=== PATIENT | male | born 1990 | race Two or more races ===

== ENCOUNTER 2019-07-08 01:10 | Emergency (ER) | payer MEDICAID ==
[~2019-07-08] VITALS: Ht 172.7 cm; Wt 90.7 kg
[2019-07-08 01:22] VITALS: BP 138/93
[2019-07-08 01:45] LABS: Basophils # (auto) 0 10 ^3/uL (0-0.2); Basophils % (auto) 0.7 % (0.0-2.0); Eosinophils # (auto) 0.1 10 ^3/uL (0-0.8); Hemoglobin 16.9 g/dL (13.5-17.5); Lymphocytes # (auto) 1.8 10 ^3/uL (0.4-5.4); Lymphocytes % (auto) 28.3 % (10.0-50.0); Mean Corpuscular Hemoglobin 31.7 pg (28.0-32.0); Mean Corpuscular Hgb Conc. 33.7 g/dL (32.0-36.0); Mean Corpuscular Volume 93.9 fL (80.0-100.0); Monocytes # (auto) 0.6 10 ^3/uL (0-1.3); Monocytes % (auto) 8.7 % (0.0-12.0); Neutrophils # (auto) 3.9 10 ^3/uL (1.6-8.6); Neutrophils % (auto) 61.3 % (37.0-80.0); Nucleated Red Blood Cells % 0.1 %; Platelet Count (auto) 245 10^3/uL (140-450); Red Blood Cells 5.32 10^6/uL (4.5-5.90); Red Cell Distribution Width 13.7 % (11.8-14.3); White Blood Cell 6.3 10^3/uL (4.4-10.8)
[2019-07-08 01:54] LABS: Urine Bacteria FEW /hpf (None Seen); Urine Blood Negative /uL (Negative); Urine Hyaline Cast FEW /lpf (0 - 2); Urine Mucus FEW (None Seen); Urine Specific Gravity 1.009 (1.001-1.035); Urine WBC 2 /hpf (0 - 3)
[2019-07-08 02:06] LABS: Albumin 4.3 g/dL (3.4-5.0); BUN/Creatinine Ratio 8.8; Calcium 8.4 mg/dL (8.5-10.1)
[2019-07-08 02:08] LABS: Bilirubin, Total 0.4 mg/dL (0.2-1.0); Total Protein 8.6 g/dL (6.4-8.2)
[2019-07-08 02:18] LABS: Amphetamine Screen, Urine NEGATIVE (NEGATIVE); Barbiturate Scree,Urine NEGATIVE (NEGATIVE); Benzodiazephine Screen, Urine NEGATIVE (NEGATIVE); Cannabinoid Screen, Urine NEGATIVE (NEGATIVE); Cocaine Screen, Urine NEGATIVE (NEGATIVE); Opiate Scree,Urine NEGATIVE (NEGATIVE); Phencyclidine Screen, Urine NEGATIVE (NEGATIVE)
[2019-07-08] MEDS ORDERED: cefTRIAXone SOD 1,000 MG VL IM ONE (02:30)
[2019-07-08] MEDS ORDERED: KETOROLAC TROMETH 60MG/2ML VIAL IM ONE (02:45)
== END 2019-07-08 02:50 | disposition home or self-care (01) ==
LOC: ER 01:14
DX: R51 Headache (principal); N39.0 Urinary tract infection, site not specified; F10.129 Alcohol abuse with intoxication, unspecified; R74.8 Abnormal levels of other serum enzymes; V89.2XXA Person injured in unspecified motor-vehicle accident, traffic, initial encounter; Y93.89 Activity, other specified; Y92.410 Unspecified street and highway as the place of occurrence of the external cause; Y99.8 Other external cause status
CPT/HCPCS: 36415; 70450; 72100; 72125; 80053; 80307; 81001; 85025; 96372; 99285; J0696; J1885

== ENCOUNTER 2020-11-26 10:46 | Inpatient (IN) | payer MEDICAID ==
[~2020-11-26] VITALS: Ht 172.7 cm; Wt 88.7 kg
[2020-11-26] MEDS ORDERED: MORPHINE SULFATE 4 MG/ML SYR/VIAL IV ONE (11:15)
[2020-11-26] MEDS ORDERED: PANTOPRAZOLE 40 MG/10 ML VIAL INJ IV ONE (11:15)
[2020-11-26] MEDS ORDERED: SODIUM CHLORIDE 0.9% 1,000 ML IVB ONE (11:15)
[2020-11-26] MEDS ORDERED: ONDANSETRON HCL 4 MG/2 ML VIAL IV ONE (11:15)
[2020-11-26 12:03] LABS: Basophils # (auto) 0 10 ^3/uL (0-0.2); Basophils % (auto) 0.2 % (0.0-2.0); Eosinophils # (auto) 0.1 10 ^3/uL (0-0.8); Eosinophils % (auto) 1.4 % (0.0-7.0); Hemoglobin 17.6 g/dL (13.5-17.5); Lymphocytes # (auto) 0.7 10 ^3/uL (0.4-5.4); Lymphocytes % (auto) 8.2 % (10.0-50.0); Mean Corpuscular Hemoglobin 32.3 pg (28.0-32.0); Mean Corpuscular Hgb Conc. 33.9 g/dL (32.0-36.0); Mean Corpuscular Volume 95.3 fL (80.0-100.0); Monocytes # (auto) 0.3 10 ^3/uL (0-1.3); Neutrophils # (auto) 7.7 10 ^3/uL (1.6-8.6); Neutrophils % (auto) 87.2 % (37.0-80.0); Red Blood Cells 5.45 10^6/uL (4.5-5.90); Red Cell Distribution Width 13.7 % (11.8-14.3); White Blood Cell 8.8 10^3/uL (4.4-10.8)
[2020-11-26 12:10] LABS: Albumin 4.3 g/dL (3.4-5.0); Calcium 9.3 mg/dL (8.5-10.1); Potassium 3.5 mmol/L (3.5-5.1)
[2020-11-26 12:17] LABS: BUN/Creatinine Ratio 14.6; Bilirubin, Total 3.7 mg/dL (0.2-1.0); Total Protein 8.4 g/dL (6.4-8.2)
[2020-11-26 13:10] LABS: Urine Bacteria NONE SEEN /hpf (None Seen); Urine Blood Negative /uL (Negative); Urine Mucus FEW (None Seen); Urine WBC 1 /hpf (0 - 3)
[2020-11-26 13:20] LABS: Urine Specific Gravity > 1.050 (1.001-1.035)
[2020-11-26] MEDS ORDERED: NITROGLYCERIN 0.4 MG SL TAB SL PRN (16:15)
[2020-11-26] MEDS ORDERED: MORPHINE SULFATE INJECTION 2 MG/ML SYRG IV PRN (16:15)
[2020-11-26] MEDS: SODIUM CHLORIDE 0.9% 1,000 ML IV SCH ×2 (16:34→22:00)
[2020-11-26] MEDS: PIPERACILLIN-TAZOB 3.375GM 100 ML IV SCH ×2 (16:46→22:11)
[2020-11-26] MEDS ORDERED: ONDANSETRON HCL 4 MG/2 ML VIAL IV PRN (20:00)
[2020-11-26] MEDS: MORPHINE SULFATE 4 MG/ML SYR/VIAL IV PRN (21:10)
[2020-11-26 22:00] VITALS: BP 132/83
[2020-11-26] MEDS ORDERED: ACET-1156 PO (23:31)
[2020-11-27] MEDS: MORPHINE SULFATE 4 MG/ML SYR/VIAL IV PRN ×5 (01:06→20:12)
[2020-11-27 05:00] VITALS: BP 138/89
[2020-11-27] MEDS: PIPERACILLIN-TAZOB 3.375GM 100 ML IV SCH ×3 (05:25→21:59)
[2020-11-27 05:30] LABS: Basophils # (auto) 0 10 ^3/uL (0-0.2); Basophils % (auto) 0.3 % (0.0-2.0); Eosinophils # (auto) 0.3 10 ^3/uL (0-0.8); Eosinophils % (auto) 5.5 % (0.0-7.0); Hematocrit 44.2 % (41.0-53.0); Hemoglobin 15.2 g/dL (13.5-17.5); Lymphocytes # (auto) 0.8 10 ^3/uL (0.4-5.4); Lymphocytes % (auto) 16.1 % (10.0-50.0); Mean Corpuscular Hemoglobin 32.6 pg (28.0-32.0); Mean Corpuscular Hgb Conc. 34.3 g/dL (32.0-36.0); Mean Corpuscular Volume 94.9 fL (80.0-100.0); Monocytes # (auto) 0.2 10 ^3/uL (0-1.3); Monocytes % (auto) 4.5 % (0.0-12.0); Neutrophils # (auto) 3.8 10 ^3/uL (1.6-8.6); Neutrophils % (auto) 73.6 % (37.0-80.0); Nucleated Red Blood Cells % 0.1 %; Red Blood Cells 4.66 10^6/uL (4.5-5.90); Red Cell Distribution Width 13.7 % (11.8-14.3); White Blood Cell 5.2 10^3/uL (4.4-10.8)
[2020-11-27 05:55] LABS: Potassium 3.7 mmol/L (3.5-5.1)
[2020-11-27 06:00] LABS: Albumin 3.3 g/dL (3.4-5.0); BUN/Creatinine Ratio 12.1; Calcium 8.2 mg/dL (8.5-10.1)
[2020-11-27 06:02] LABS: Bilirubin, Total 1.8 mg/dL (0.2-1.0); Total Protein 6.4 g/dL (6.4-8.2)
[2020-11-27] MEDS: SODIUM CHLORIDE 0.9% 1,000 ML IV SCH ×2 (08:55→17:15)
[2020-11-27 09:00] VITALS: BP 124/84
[2020-11-27 13:00] VITALS: BP 142/87
[2020-11-27 17:00] VITALS: BP 133/80
[2020-11-27 22:00] VITALS: BP 134/79
[2020-11-28] MEDS: MORPHINE SULFATE 4 MG/ML SYR/VIAL IV PRN ×4 (01:01→19:58)
[2020-11-28] MEDS: SODIUM CHLORIDE 0.9% 1,000 ML IV SCH ×3 (02:42→18:33)
[2020-11-28 05:00] VITALS: BP 131/78
[2020-11-28] MEDS: PIPERACILLIN-TAZOB 3.375GM 100 ML IV SCH ×3 (05:21→21:12)
[2020-11-28 09:00] VITALS: BP 138/81
[2020-11-28 13:00] VITALS: BP 123/80
[2020-11-28] MEDS: MORPHINE SULFATE INJECTION 2 MG/ML SYRG IV PRN (15:01)
[2020-11-28 17:00] VITALS: BP 121/81
[2020-11-28 21:49] VITALS: BP 125/87
[2020-11-29] MEDS: MORPHINE SULFATE INJECTION 2 MG/ML SYRG IV PRN (00:23)
[2020-11-29] MEDS: SODIUM CHLORIDE 0.9% 1,000 ML IV SCH (03:33)
[2020-11-29 05:13] VITALS: BP_SYST 119; BP_SYST 94; BP_DIAS 62; BP_DIAS 76
[2020-11-29] MEDS: PIPERACILLIN-TAZOB 3.375GM 100 ML IV SCH (05:24)
[2020-11-29] MEDS: MORPHINE SULFATE 4 MG/ML SYR/VIAL IV PRN (05:39)
[2020-11-29 06:16] LABS: Potassium 3.2 mmol/L (3.5-5.1)
[2020-11-29 06:17] LABS: Albumin 3.1 g/dL (3.4-5.0); Calcium 8.9 mg/dL (8.5-10.1); Magnesium 2.1 mg/dL (1.6-2.6)
[2020-11-29 06:19] LABS: BUN/Creatinine Ratio 5.6
[2020-11-29 06:29] LABS: Total Protein 6.7 g/dL (6.4-8.2)
[2020-11-29 09:00] VITALS: BP 124/77
[2020-11-29] MEDS ORDERED: HYDROcodone-ACET 5/325MG TAB PO PRN (09:30)
[2020-11-29 13:22] VITALS: BP 116/70
== END 2020-11-29 14:35 | disposition home or self-care (01) ==
LOC: ER 10:46 → TELE 16:05 → TELE-CENTR 22:00
PROVIDERS: ADMIT Nurse Practitioner; ATTEND Nurse Practitioner
DX: K81.0 Acute cholecystitis (principal); K85.20 Alcohol induced acute pancreatitis without necrosis or infection; K76.0 Fatty (change of) liver, not elsewhere classified; R74.8 Abnormal levels of other serum enzymes; Z20.822 Contact with and (suspected) exposure to COVID-19; Z82.49 Family history of ischemic heart disease and other diseases of the circulatory system; Z83.3 Family history of diabetes mellitus
CPT/HCPCS: 36415; 76705; 80053; 80320; 81001; 83690; 83735; 84100; 85025; 87426; 96361; 96374; 96375; C9113; G0378; J2405; J2543

== ENCOUNTER 2021-03-11 19:03 | Emergency (ER) | payer MEDICAID ==
[~2021-03-11] VITALS: Ht 172.7 cm; Wt 90.7 kg
[~2021-03-11 19:03] MED LIST: ACET-1156 PO
[2021-03-11] MEDS ORDERED: ONDANSETRON ODT 4 MG TAB PO ONE (21:00)
[2021-03-11 23:06] VITALS: BP 132/89
== END 2021-03-11 23:32 | disposition home or self-care (01) ==
LOC: ER 19:04
DX: K85.90 Acute pancreatitis without necrosis or infection, unspecified (principal); Z79.899 Other long term (current) drug therapy
CPT/HCPCS: 99283; Q0162